=== PATIENT | female | born 1985 | race Caucasian/White ===

== ENCOUNTER 2024-01-04 19:52 | Emergency (ER) | payer BC ==
[~2024-01-04] VITALS: Ht 172.7 cm; Wt 85.7 kg
[2024-01-04 20:47] VITALS: BP_SYST 116; PULSE 95; RESP 16; TEMP 96.4; O2SAT 96
== END 2024-01-04 23:16 | disposition home or self-care (01) ==
LOC: SED 19:52
DX: Z48.00 Encounter for change or removal of nonsurgical wound dressing (principal)
CPT/HCPCS: 99281